=== PATIENT | female | born 1975 ===

== ENCOUNTER 2022-09-07 19:56 | Emergency (ER) | payer OTHER, MEDICAID, SELFPAY ==
[2022-09-07 20:30] VITALS: BP 135/78; PULSE 74; RESP 16; TEMP 36.6; O2SAT 98; BMI 47.7
--- NOTE | 2022-09-07 20:52 | DI.RAD.S_ITS ---
PROCEDURE: XR CHEST 1V INDICATIONS: chest pain TECHNIQUE: One view of the chest was acquired. COMPARISON: None. FINDINGS: Surgical changes and devices: None. Lungs and pleura: Lungs are clear. No pleural effusions or pneumothorax. Mediastinum: Mediastinal contours appear normal. Heart size is normal. Bones and chest wall: No suspicious bony lesions. Overlying soft tissues appear unremarkable. IMPRESSION: Normal for age, source of current chest pain symptoms is not seen. Dictated by: Tra Rios M.D. on 09/07/2022 at 21:45 Approved by: Tra Rios M.D. on 09/07/2022 at 21:45
[2022-09-07 21:10] VITALS: PULSE 79; O2SAT 97
[2022-09-07 21:23] LABS: Add Manual Diff / Slide Review NO; Basophils Absolute Auto 0 /uL (0-100); Basophils Percent Auto 0.8 % (0-2); Eosinophils Absolute Auto 200 /uL (0-450); Eosinophils Percent Auto 3.6 % (2-4); Hematocrit 38.6 % (36-46); Lymphocytes Absolute Auto 2500 /uL (1100-4500); Lymphocytes Percent Auto 41.1 % (25-40); Mean Corpuscular HGB Conc 33.6 % (30-36); Mean Corpuscular Hemoglobin 27.4 PG (26-34); Mean Corpuscular Volume 81.6 fL (80-100); Monocytes Absolute Auto 400 /uL (0-900); Monocytes Percent Auto 6.5 % (3-14); Neutrophils Absolute Auto 2900 /uL (1500-7000); Platelet Count 224 X10^3/uL (150-400); Red Blood Cell Count 4.73 X10^6/uL (4.0-5.2); Red Cell Distribution Width 15.3 % (11.6-14.8)
[2022-09-07 21:26] LABS: Alanine Aminotransferase 28 IU/L (<35); Albumin Globulin Ratio 1.3 (1.0-2.8); Alkaline Phosphatase 90 U/L (38-126); Aspartate Aminotransferase 23 IU/L (14-36); BUN Creatinine Ratio 22.1 (6-22); Bilirubin Total 0.4 mg/dL (0.2-1.3); Blood Urea Nitrogen 15 mg/dL (7-17); Calcium 8.4 mg/dL (8.4-10.2); Carbon Dioxide 28 mmol/L (22-32); Chloride 105 mmol/L (98-107); Creatine Kinase 65 U/L (30-135); Estimated Glomerular Filt Rate > 60 mL/min (>60); Globulin 3.2 g/dL (1.7-4.1); Glucose 111 mg/dL (70-100); HEMOLYSIS 17 (0-50); Lipase 222 U/L (23-300); Potassium 3.6 mmol/L (3.4-5.1); Sodium 140 mmol/L (137-145); Total Protein 7.2 g/dL (6.3-8.2)
[2022-09-07 21:30] VITALS: PULSE 79; O2SAT 97
[2022-09-07 21:37] LABS: Troponin I < 0.012 ng/mL (0.01-0.034)
[2022-09-07 21:39] VITALS: BP 119/59; PULSE 80; O2SAT 95
[2022-09-07 22:44] LABS: Appearance Urine UA CLEAR; Bilirubin Urine UA NEGATIVE (NEGATIVE); Color Urine UA YELLOW; Glucose Urine UA NEGATIVE (Negative); Ketones Urine UA NEGATIVE (NEGATIVE); Leukocyte Esterase Urine UA NEGATIVE (NEGATIVE); Nitrite Urine UA NEGATIVE (Negative); Occult Blood Urine UA NEGATIVE (Negative); Protein Urine UA NEGATIVE (Negative); Urobilinogen Urine UA 0.2 E.U./dL (0.2)
[2022-09-07 23:19] LABS: Creatine Kinase 61 U/L (30-135)
[2022-09-07 23:32] LABS: Troponin I < 0.012 ng/mL (0.01-0.034)
--- NOTE | 2022-09-08 00:19 | DI.CT.S_ITS ---
PROCEDURE: CT ANGIO CHEST PE PROTOCOL INDICATIONS: chest pain, hx of blood clot, left side TECHNIQUE: After the administration of intravenous contrast, 2 mm thick sections acquired from the pulmonary apices to the posterior costophrenic angles. 3-dimensional maximum intensity projection (MIP) coronal and sagittal reformats were then acquired through the thorax. For radiation dose reduction, the following was used: automated exposure control, adjustment of mA and/or kV according to patient size. COMPARISON: [facility], CT, CT ABDOMEN PELVIS WITH CONTRAST, 08/28/2020, 2:09. [facility], US, US VENOUS LOWER EXTREMITY DOPPLER BILATERAL, 02/19/2022, 8:03. FINDINGS: Image quality: Excellent. Pulmonary arteries: Pulmonary arteries are normal in size, and demonstrate no intraluminal filling defects to suggest central pulmonary embolism. Lungs and pleura: Lungs are clear. No pleural effusions or pneumothorax. Central and peripheral airways are patent. Mediastinum: Heart size is normal, without pericardial effusion. No mediastinal or hilar adenopathy. Thoracic aorta is normal in caliber and enhancement. Esophagus is normal in caliber, without hiatal hernia. Bones and chest wall: No suspicious bony lesions. Ribs and thoracic spine appear intact throughout. Thyroid gland appears normal. No axillary or supraclavicular adenopathy. Abdomen: Visualized upper abdominal solid organs appear normal in the early arterial phase of enhancement. IMPRESSION: No pulmonary embolus seen, no evidence of aortic dissection. Source of persistent chest pain is not found. Dictated by: Tra Rios M.D. on 09/08/2022 at 0:52 Approved by: Tra Rios M.D. on 09/08/2022 at 0:55
[2022-09-08 00:29] LABS: Bacteria Urine None Seen; Culture Indicated Urine Cult Not Indicated; RBC Urine None Seen (0-5/HPF); Squamous Epithelial Cell Urine 0-1 /HPF (0-5/HPF); WBC Urine None Seen (0-5/HPF)
--- NOTE | 2022-09-08 00:32 | ED_ITS ---
HPI - Chest Pain General Chief Complaint: Chest Pain Stated Complaint: chest pain/vag discharge/pain x60 days Time Seen by Provider: 09/07/22 23:54 Source: patient Mode of arrival: Ambulatory Limitations: no limitations History of Present Illness HPI narrative: This is a 46-year-old female with complaint of chest pain present for the past 2 weeks. Patient states it has been intermittent but has now become more c onstant. She states it is left-sided it does not radiate. She denies any shortness of breath. Patient states movement does not make it worse. Sometimes lying down makes it feel better but even that has stopped. She denies fevers or chills. No cold cough or congestion. She is had some mild nausea occasional. No vomiting. No diarrhea, no constipation. She denies dysuria urgency or frequency. She has noticed some odor and vaginal discharge suspect she may have a yeast infection. She states she was having swelling last in legs but then it got better. He was both sides. She states she is treated for hypothyroidism on levothyroxine. She denies oral contraceptives or estrogen but notes she would a tummy tuck while in [place] last year and states that she got a blood clot or thrombosis she is not clear if it was in her leg or elsewhere but states she was on blood thinners. She states she is not currently on blood thinners. Patient states she is had a cholecystectomy. She states she is allergic to iron infusions. She had blood transfusions and iron transfusion while in [place] last year. She denies tobacco, alcohol or illicit. Family history denies any cardiac, embolic or other family history. She states the physician in [place] checked blood work and told her she had ?thrombosis? Related Data Previous Rx's Medication Instructions Recorded fluconazole 150 mg tablet 150 mg PO Q3D 2 doses #2 tabs 09/08/22 (Diflucan) Allergies Allergy/AdvReac Type Severity Reaction Status Date / Time No Known Drug Allergies Allergy Verified 09/07/22 20:49 Review of Systems Review of Systems ROS Unobtainable: All systems reviewed & are unremarkable except as noted in HPI and below Patient History Social History Smoking Status: Never smoker Smoking Status: Never smoker Substance Use Type: does not use Exam Narrative Exam Narrative: GENERAL: Alert and oriented x three, obese female in mild distress. HEENT: Head normocephalic, atraumatic, EOMI, pupils reactive, face symmetric, moist mucous membranes NECK: Supple, full range of motion CARDIOVASCULAR: Regular rate and rhythm without murmurs, rubs or gallops. Non reproducible chest pain. No rash, vesicles or skin changes. RESPIRATORY: Breath sounds equal bilaterally, no wheezes rales or rhonchi. No tachypnea. No accessory muscle use. ABDOMEN: Soft, nontender. Normoactive bowel sounds all 4 quadrants. No guarding or rebound, rigidity, no mass : No CVA tenderness EXTREMITIES: Normal range of motion, no clubbing or edema. Neurovascularly inta ct NEUROLOGICAL: Cranial nerves II through XII grossly intact. Moving all extremities SKIN: Warm, dry, no petechiae, no rashes or lesions. Initial Vital Signs Initial Vital Signs: Vital Signs Temperature 97.8 F 09/07/22 20:30 Pulse Rate 74 09/07/22 20:30 Respiratory Rate 16 09/07/22 20:30 Blood Pressure 135/78 09/07/22 20:30 Pulse Oximetry 98 09/07/22 20:30 Oxygen Delivery Method 09/07/22 20:30 Scores HEART Score Heart Score history: Moderately Suspicious Heart Score EKG: Normal Heart Score Age: 45-64 years old Heart Score risk factors: No known risk factors Heart Score troponin: < or = to normal limit Heart Score Total: 2 PERC Score Age greater than or equal to 50 years: No Heart rate greater than or equal to 100 bpm: No Room Air O2 Sat less than 95%: No Unilateral leg swelling: No Recent trauma or surgery: No Hemoptysis: No Prior PE or DVT: Yes Hormone Use: No Total PERC Score: 1 Course Orders Ordered: ED Orders 09/08/22 00:19 CT angio chest PE protocol Stat Discontinued Medications Aspirin (Aspirin 81 Mg Chew Tab) 324 mg PO NOW ONE Stop: 09/07/22 20:51 Last Admin: 09/07/22 22:30 Dose: Not Given Documented By: VÍCTOR Vital Signs Vital signs: Vital Signs - 8 hr 09/07/22 20:30 09/07/22 21:10 09/07/22 21:30 Temperature 97.8 F Pulse Rate 74 79 79 Respiratory Rate 16 Blood Pressure 135/78 Pulse Oximetry 98 97 97 Oxygen Delivery Method Room Air 09/07/22 21:39 09/07/22 21:39 Temperature Pulse Rate 80 Respiratory Rate Blood Pressure 119/59 L Pulse Oximetry 95 Oxygen Delivery Method MDM - Chest Pain Lab Data 09/07/22 21:00 09/07/22 21:00 Labs: Lab Results 09/07/22 09/07/22 09/07/22 Range/Units 20:49 21:00 21:00 WBC 6.0 (4.5-11.0) X10^3/uL RBC 4.73 (4.0-5.2) X10^6/uL Hgb 13.0 (12.0-16.0) g/dL Hct 38.6 (36-46) % MCV 81.6 (80-100) fL MCH 27.4 (26-34) PG MCHC 33.6 (30-36) % RDW 15.3 H (11.6-14.8) % Plt Count 224 (150-400) X10^3/uL Neut % (Auto) 48.0 L (50-75) % Lymph % (Auto) 41.1 H (25-40) % Sampson % (Auto) 6.5 (3-14) % Eos % (Auto) 3.6 (2-4) % Baso % (Auto) 0.8 (0-2) % Neut # (Auto) 2900 (5839-0575) /uL Lymph # (Auto) 2500 (4583-7417) /uL Sampson # (Auto) 400 (0-900) /uL Eos # (Auto) 200 (0-450) /uL Baso # (Auto) 0 (0-100) /uL Sodium 140 (137-145) mmol/L Potassium 3.6 (3.4-5.1) mmol/L Chloride 105 (98-107) mmol/L Carbon Dioxide 28 (22-32) mmol/L BUN 15 (7-17) mg/dL Creatinine 0.68 (0.52-1.04) mg/dL Estimated GFR > 60 (>60) mL/min BUN/Creatinine Ratio 22.1 H (6-22) Glucose 111 H (70-100) mg/dL Calcium 8.4 (8.4-10.2) mg/dL Total Bilirubin 0.4 (0.2-1.3) mg/dL AST 23 (14-36) IU/L ALT 28 (<35) IU/L Alkaline Phosphatase 90 (38-126) U/L Total Creatine Kinase 65 (30-135) U/L CK-MB (CK-2) TNP CK-MB (CK-2) Rel Index TNP Troponin I < 0.012 (0.01-0.034) ng/mL Total Protein 7.2 (6.3-8.2) g/dL Albumin 4.0 (3.5-5.0) g/dL Globulin 3.2 (1.7-4.1) g/dL Albumin/Globulin Ratio 1.3 (1.0-2.8) Lipase 222 (23-300) U/L Urine Color Yellow Urine Appearance Clear Urine pH 6.0 (4.5-8.0) Ur Specific [place] 1.020 (1.000-1.035) Urine Protein Negative (Negative) Urine Glucose (UA) Negative (Negative) g/dL Urine Ketones Negative (NEGATIVE) Urine Occult Blood Negative (Negative) Urine Nitrate Negative (Negative) Urine Bilirubin Negative (NEGATIVE) Urine Urobilinogen 0.2 (0.2) E.U./dL Ur Leukocyte Esterase Negative (NEGATIVE) Urine RBC None seen (0-5/HPF) Urine WBC None seen (0-5/HPF) Ur Squamous Epith Cells 0-1 /hpf (0-5/HPF) Urine Bacteria None seen (None) Ur Culture Indicated? Cult not indicated 09/07/22 Range/Units 23:02 WBC (4.5-11.0) X10^3/uL RBC (4.0-5.2) X10^6/uL Hgb (12.0-16.0) g/dL Hct (36-46) % MCV (80-100) fL MCH (26-34) PG MCHC (30-36) % RDW (11.6-14.8) % Plt Count (150-400) X10^3/uL Neut % (Auto) (50-75) % Lymph % (Auto) (25-40) % Sampson % (Auto) (3-14) % Eos % (Auto) (2-4) % Baso % (Auto) (0-2) % Neut # (Auto) (6140-4433) /uL Lymph # (Auto) (6183-0957) /uL Sampson # (Auto) (0-900) /uL Eos # (Auto) (0-450) /uL Baso # (Auto) (0-100) /uL Sodium (137-145) mmol/L Potassium (3.4-5.1) mmol/L Chloride (98-107) mmol/L Carbon Dioxide (22-32) mmol/L BUN (7-17) mg/dL Creatinine (0.52-1.04) mg/dL Estimated GFR (>60) mL/min BUN/Creatinine Ratio (6-22) Glucose (70-100) mg/dL Calcium (8.4-10.2) mg/dL Total Bilirubin (0.2-1.3) mg/dL AST (14-36) IU/L ALT (<35) IU/L Alkaline Phosphatase (38-126) U/L Total Creatine Kinase 61 (30-135) U/L CK-MB (CK-2) TNP CK-MB (CK-2) Rel Index TNP Troponin I < 0.012 (0.01-0.034) ng/mL Total Protein (6.3-8.2) g/dL Albumin (3.5-5.0) g/dL Globulin (1.7-4.1) g/dL Albumin/Globulin Ratio (1.0-2.8) Lipase (23-300) U/L Urine Color Urine Appearance Urine pH (4.5-8.0) Ur Specific [place] (1.000-1.035) Urine Protein (Negative) Urine Glucose (UA) (Negative) g/dL Urine Ketones (NEGATIVE) Urine Occult Blood (Negative) Urine Nitrate (Negative) Urine Bilirubin (NEGATIVE) Urine Urobilinogen (0.2) E.U./dL Ur Leukocyte Esterase (NEGATIVE) Urine RBC (0-5/HPF) Urine WBC (0-5/HPF) Ur Squamous Epith Cells (0-5/HPF) Urine Bacteria (None) Ur Culture Indicated? Point of Care Testing Test Results Negative Urine Dip Bedside Urine Glucose Negative Bedside Urine Bilirubin - Negative Bedside Urine Ketone - Negative Urine Specific [place] 1.015 Bedside Urine Occult Blood - Negative Bedside Urine pH 6.0 Bedside Urine Protein - Negative Bedside Urine Urobilinogen - Negative Bedside Urine Nitrite - Negative Bedside Urine Leukocytes - Negative Esterase Imaging Data Chest x-ray: Radiologist's Impression: [address] [place] [address] XRay Report Signed Patient: Anisa De La O I MR#: [id number] : 1975 Acct:[id number] Age/Sex: 46 / F Date of Service: 09/07/22 Loc: ED Accession Number: [id number] ?? Procedure: XR chest 1V Ordering Provider: Padmini Vazquez D.O. PROCEDURE:? XR CHEST 1V ? INDICATIONS:? chest pain ? TECHNIQUE:? One view of the chest was acquired.? ? COMPARISON:? None. ? FINDINGS:? ? Surgical changes and devices:? None.? ? Lungs and pleura:? Lungs are clear.? No pleural effusions or pneumothorax.? ? Mediastinum:? Mediastinal contours appear normal.? Heart size is normal.? ? Bones and chest wall:? No suspicious bony lesions.? Overlying soft tissues appear unremarkable.? ? IMPRESSION:? Normal for age, source of current chest pain symptoms is not seen. ? ? Dictated by: Tra Rios M.D. on 09/07/2022 at 21:45 ? ? Approved by: Tra Rios M.D. on 09/07/2022 at 21:45?? CT scan - chest: Radiologist's Impression: Anisa De La O I??46??F??1975 ? Allergy/Adv: No Known Drug Allergies Close Chest CTA (Signed) Tra Rios - 09/08/22 Chest X-Ray (Signed) Tra Rios - 09/07/22 Launch?[address] [address] [address] Scan Report Signed Patient: Anisa De La O I MR#: [id number] : 1975 Acct:[id number] Age/Sex: 46 / F Date of Service: 09/08/22 Loc: ED Accession Number: [id number] ?? Procedure: CT angio chest PE protocol Ordering Provider: Padmini Vazquez D.O. PROCEDURE:? CT ANGIO CHEST PE PROTOCOL ? INDICATIONS:? chest pain, hx of blood clot, left side ? TECHNIQUE:? After the administration of intravenous contrast, 2 mm thick sections acquired from the pulmonary apices to the posterior costophrenic angles.? 3-dimensional maximum intensity projection (MIP) coronal and sagittal reformats were then acquired through the thorax.? For radiation dose reduction, the following was used:? automated exposure control, adjustment of mA and/or kV according to patient size.? ? COMPARISON:? [facility], CT, CT ABDOMEN PELVIS WITH CONTRAST, 08/28/2020, 2:09.? [facility], US, US VENOUS LOWER EXTREMITY DOPPLER BILATERAL, 02/19/2022, 8:03. ? FINDINGS:? Image quality:? Excellent.? ? Pulmonary arteries:? Pulmonary arteries are normal in size, and demonstrate no intraluminal filling defects to suggest central pulmonary embolism.? ? Lungs and pleura:? Lungs are clear.? No pleural effusions or pneumothorax.? Central and peripheral airways are patent.? ? Mediastinum:? Heart size is normal, without pericardial effusion.? No mediastinal or hilar adenopathy.? Thoracic aorta is normal in caliber and enhancement.? Esophagus is normal in caliber, without hiatal hernia.? ? Bones and chest wall:? No suspicious bony lesions.? Ribs and thoracic spine appear intact throughout.? Thyroid gland appears normal.? No axillary or supraclavicular adenopathy.? ? Abdomen:? Visualized upper abdominal solid organs appear normal in the early arterial phase of enhancement.? ? IMPRESSION:? No pulmonary embolus seen, no evidence of aortic dissection.? Source of persistent chest pain is not found. ? ? Dictated by: Tra Rios M.D. on 09/08/2022 at 0:52 ? ? Approved by: Tra Rios M.D. on 09/08/2022 at 0:55?? ECG Data Attestation: I personally reviewed and interpreted this ECG as follows: Prior ECG tracings: not available for review Interpretation: Sinus rhythm rate of 70 6p are 172, QRS of 90 QTC of 456. No acute ST elevation or depression noted. No priors. Treatment and disposition Social Determinants of Health that impact treatment or disposition: staying at [facility] with family currently MDM Narrative Medical decision making narrative: This is a 46-year-old female comes in with complaint of left-sided chest pain that has been present for 2 weeks intermittent and now persistent for the past 2 days. No radiation, no shortness of breath, patient states little bit better when she lies flat. CBC, CMP, troponin do not show a clear cause. EKG shows no acute changes. Urine is negative. Chest x-ray shows no acute change. After discussion patient notes that she possibly had a blood clot when she was in [place] after surgery approximately a year ago so decision was made to forego D- dimer as will likely be elevated based on BMI of [address] angio was obtained which is negative with no other acute changes noted. Discussed with patient do not have a clear source for her pain but no red flag symptoms are found today. Recommend a follow-up. She also notes she is been having some vaginal discharge she defers pelvic but is open to having prescription for yeast infection with plan to be evaluated if having persistent discharge. Patient states she is not sexually active at this time. Discharge Plan Departure Patient Disposition: Home Clinical Impression: Chest pain Instructions: DI for Chest Pain Activity Restrictions/Additional Instructions: Please follow-up for recheck I do think he would benefit from some additional w orkup. An exact cause of your chest pain was not found today. You can take Tylenol and/or ibuprofen as needed for pain. Prescription for Diflucan was sent, you can take 1 tablet on day 1 and then 2nd tablet on day 3.? If your symptoms are persisting you do need a pelvic exam. Please return for rapidly worsening symptoms, fevers, coughing up blood, worsening pain, shortness of breath, new swelling in her extremities or other new or concerning changes. Prescriptions: New fluconazole [Diflucan] 150 mg tablet 150 mg PO Q3D Qty: 2 0RF Rx Instructions: may repeat second dose 72 hrs after first dose if symptoms persist Referrals: Ewelina Rincon ARNP [Non-Staff] - Blanca Pete DO [Physician] - Stand Alone Forms: Patient Portal/API, Work Release Note
== END 2022-09-08 01:26 | disposition home or self-care (01) ==
PROVIDERS: Emergency Provider Emergency Medicine
DX: R07.9 Chest pain, unspecified (principal)
CPT/HCPCS: 36415; 71045; 71275; 80053; 81001; 81003; 81025; 82550; 83690; 84484; 85025; 93005; 99284; Q9967

== ENCOUNTER 2024-05-17 17:55 | Emergency (ER) | payer OTHER, MEDICAID, SELFPAY ==
[2024-05-17 18:09] VITALS: BP 127/76; PULSE 73; RESP 18; TEMP 36.7; O2SAT 99; BMI 53.2
--- NOTE | 2024-05-17 18:14 | DI.RAD.S_ITS ---
PROCEDURE: XR ANKLE RT MIN 3V INDICATIONS: pain TECHNIQUE: 3 views of the ankle were acquired. COMPARISON: None. FINDINGS: Bones: No fractures or dislocations. Ankle mortise is normally aligned. No suspicious bony lesions. Dorsal calcaneal enthesophyte. Soft tissues: No tibiotalar joint effusion. Achilles tendon appears normal. IMPRESSION: No acute bony abnormality or significant effusion. Dictated by: Thanh Floyd M.D. on 05/17/2024 at 18:43 Approved by: Thanh Floyd M.D. on 05/17/2024 at 18:43
--- NOTE | 2024-05-17 20:15 | PC.NURSE ---
right heel pain, denies any injury, pain > 1 month no obvious injury or swelling noted
--- NOTE | 2024-05-17 20:15 | ED.EXTPRO ---
HPI - Extremity Problem General Chief complaint: Extremity Problem,Nontraumatic Stated complaint: rt foot px Time Seen by Provider: 05/17/24 20:09 Source: patient Mode of arrival: Ambulatory Limitations: no limitations History of Present Illness HPI Narrative: 48-year-old female here for evaluation right-sided ankle pain. States that over the past several weeks it month she was had discomfort on her right heel. No specific trauma. Has not tried anything for the symptoms prior to arrival. States she now has some difficulty walking in his causing her to limp. No other foot pain. No knee pain. Related Data Previous Rx's Medication Instructions Recorded fluconazole 150 mg tablet 150 mg PO Q3D 2 doses #2 tabs 09/08/22 (Diflucan) Allergies Allergy/AdvReac Type Severity Reaction Status Date / Time iron Allergy Verified 05/17/24 18:09 Review of Systems Review of Systems Narrative: See HPI Patient History Social History Smoking Status: Never smoker Smoking Status: Never smoker Substance Use Type: does not use Exam Initial Vital Signs Initial Vital Signs: Vital Signs Temperature 98.0 F 05/17/24 18:09 Pulse Rate 73 05/17/24 18:09 Respiratory Rate 18 05/17/24 18:09 Blood Pressure 127/76 05/17/24 18:09 Pulse Oximetry 99 05/17/24 18:09 Oxygen Delivery Method Room Air 05/17/24 18:09 Cardio Pulses: dorsalis pedis present on the right Skin General: no rashes or lesions noted Neuro Sensory Exam: no sensory deficits noted Extrem Other: Patient had discomfort to palpation located at the insertion of the Achilles tendon on the calcaneus. No lateral medial malleolar pain. No calf tenderness. Rest of her foot and lower extremity exam is unremarkable. Course Orders Ordered: ED Orders 05/17/24 18:14 XR ankle RT min 3V Stat Discontinued Medications Ibuprofen (Ibuprofen 400 Mg Tablet) 800 mg PO NOW ONE Stop: 05/17/24 20:16 Last Admin: 05/17/24 20:20 Dose: 800 mg Documented By: DENZEL Vital Signs Vital signs: Vital Signs - 8 hr 05/17/24 20:25 Pulse Rate 72 Respiratory Rate 18 Blood Pressure 126/74 Pulse Oximetry 18 L Oxygen Delivery Method Room Air MDM - Extremity (Nontraumatic) Imaging Data Extremity x-ray #1: Radiologist's Impression: PROCEDURE: XR ANKLE RT MIN 3V INDICATIONS: pain TECHNIQUE: 3 views of the ankle were acquired. COMPARISON: None. FINDINGS: Bones: No fractures or dislocations. Ankle mortise is normally aligned. No suspicious bony lesions. Dorsal calcaneal enthesophyte. Soft tissues: No tibiotalar joint effusion. Achilles tendon appears normal. IMPRESSION: No acute bony abnormality or significant effusion. MDM Narrative Medical decision making narrative: No fractures noted on the x-ray. Is neurovascularly intact. Has isolated tenderness of the insertion of the Achilles tendon on the right calcaneus. No overlying skin changes. Suspect a degree of tendinitis based on her history and physical exam. Recommended conservative measures for now. She was given return precautions and follow-up instructions. She expressed understanding and agreement with plan. Discharge Plan Departure Patient Disposition: Home Clinical Impression: Achilles tendinitis Instructions: Achilles Tendinopathy, How To Perform RICE (Rest, Ice, Compress, Elevate) Activity Restrictions/Additional Instructions: I do recommend conservative measures to include anti-inflammatories. Putting ice over the area and light stretching can be helpful as well. They should make contact with the primary care doctor has sometimes these types of injuries to require physical therapy. Return to the emergency department for new symptoms. Prescriptions: No Action fluconazole [Diflucan] 150 mg tablet 150 mg PO Q3D Qty: 2 0RF Rx Instructions: may repeat second dose 72 hrs after first dose if symptoms persist Referrals: Miscellaneous,Doctor, [Primary Care Provider] - Stand Alone Forms: Patient Portal/API/Survey
[2024-05-17] MEDS: IBUPROFEN 400 MG TABLET 800 MG PO (20:20)
[2024-05-17 20:25] VITALS: BP 126/74; PULSE 72; RESP 18; O2SAT 18
== END 2024-05-17 20:26 | disposition home or self-care (01) ==
PROVIDERS: Emergency Provider Emergency Medicine
DX: M76.61 Achilles tendinitis, right leg (principal)
CPT/HCPCS: 73610; 99283